=== PATIENT | male | born 1955 | race Two or more races ===

== ENCOUNTER 2016-12-11 05:12 | Inpatient (IN) | payer BC ==
[2016-12-11] VITALS (40 sets, daily range): BP systolic 83–177; BP diastolic 53–123; PULSE 60–76; RESP 17–28; TEMP 98; Ht 175.3 cm; Wt 94.9 kg
[~2016-12-11] VITALS: Ht 175.3 cm; Wt 94.9 kg
[2016-12-11] MEDS ORDERED: RANO10002 PO (05:29)
[2016-12-11] MEDS ORDERED: METO-429 PO (05:29)
[2016-12-11] MEDS ORDERED: LOSA1TAB21 PO (05:29)
[2016-12-11] MEDS ORDERED: ZOLP10TA5 PO (05:29)
[2016-12-11] MEDS ORDERED: ERGO500037 PO (05:29)
[2016-12-11] MEDS ORDERED: RIVA15TA PO (05:29)
[2016-12-11] MEDS ORDERED: ISOS60TA PO (05:29)
[2016-12-11 05:47] LABS: BASOPHIL # 0.1 10^3/ul (0.0-0.1); BASOPHILS % 0.5 % (0.0-2.0); EOSINOPHILS # 0.1 10^3/ul (0.0-0.5); EOSINOPHILS % 1.4 % (0.0-7.0); HEMATOCRIT 50.8 % (42.0-52.0); HEMOGLOBIN 16.4 g/dl (14.0-18.0); LYMPHOCYTES # 2.4 10^3/ul (0.8-2.9); LYMPHOCYTES % 24.4 % (15.0-51.0); MEAN CORPUSCULAR HEMOGLOBIN 30.5 pg (29.0-33.0); MEAN CORPUSCULAR HGB CONC 32.3 g/dl (32.0-37.0); MEAN CORPUSCULAR VOLUME 94.6 fl (82.0-101.0); MEAN PLATELET VOLUME 9.4 fl (7.4-10.4); MONOCYTE # 0.7 10^3/ul (0.3-0.9); MONOCYTES % 6.9 % (0.0-11.0); PLATELET COUNT 218 10^3/UL (140-415); RED BLOOD COUNT 5.37 10^6/ul (4.70-6.10); RED CELL DISTRIBUTION WIDTH 12.6 % (11.5-14.5)
[2016-12-11 05:57] LABS: AADO2 Arterial 238.2 mmHg (7.0-24.0); Allen Test ACCEPTAB; Arterial Base Excess -5.6 mmol/L (-3.0-3); Arterial COHb 0.3 % (0.0-3.0); Arterial Fraction of Oxyhgb 98.8 % (93.0-99.0); Arterial HCO3 23.4 mmol/L (22.0-26.0); Arterial MetHb 0.4 % (0.0-1.5); Arterial Total Hemglobin 17.3 g/dl (12.0-18.0); MODE VENT - AC
[2016-12-11 06:00] LABS: INR 1.24; PROTIME 15.7 Sec (12.2-14.2); PT RATIO 1.2
[2016-12-11 06:05] LABS: ALANINE AMINOTRANSFERASE 38 IU/L (13-69); ALBUMIN 4.2 g/dl (3.3-4.9); ALBUMIN/GLOBULIN RATIO 1.31; ALKALINE PHOSPHATASE 43 IU/L (42-121); ANION GAP 25 (8-16); ASPARTATE AMINO TRANSFERASE 27 IU/L (15-46); BILIRUBIN,INDIRECT 0.3 mg/dl (0-1.1); BILIRUBIN,TOTAL 0.3 mg/dl (0.2-1.3); BLOOD UREA NITROGEN 24 mg/dl (7-20); CALCIUM 9.2 mg/dl (8.4-10.2); CARBON DIOXIDE 26 mmol/L (21-31); CHLORIDE 107 mmol/L (97-110); CREATININE 1.34 mg/dl (0.61-1.24); GLUCOSE 101 mg/dl (70-220); POTASSIUM 4.5 mmol/L (3.5-5.1); SODIUM 153 mmol/L (135-144); TOTAL PROTEIN 7.4 g/dl (6.1-8.1)
--- NOTE | 2016-12-11 06:12 | EN ---
Date/Time of Note Date/Time of Note DATE: 12/11/16 TIME: 06:09 ER Progress Note The patient called 911 because of chest pain. En route to the ER, he became obtunded with altered mental status but never lost pulse. He was diaphoretic when he came to the ER, unable to provide a history, Accu-Chek was 87. He was admitted intubated Endotracheal Intubation by me: Pre assessment performed. See preceding note for details. Pre-oxygenation performed with 100% oxygen RSI: Performed w/o complication or hypoxic events. Medications as ordered. Blade: [place] Scope ET Tube: 7.5 cm Depth: 23 cm at the lip Intubation confirmed by colorimetric CO2, equal breath sounds, quiet over the stomach. I have order for NG tube, [place], portable chest x-ray The patient will be evaluated by the oncoming physician Dr. Trey WEIR,DIONICIO De León MD Dec 11, 2016 06:12
[2016-12-11 06:18] LABS: TROPONIN-I < 0.012 ng/ml (0.00-0.12)
[2016-12-11] MEDS ORDERED: PROPOFOL 100 ML IV STA (06:20)
[2016-12-11] MEDS ORDERED: FUROSEMIDE 40 MG INJ IV ONE (06:30)
[2016-12-11 06:36] LABS: ADD UMIC YES; UR ASCORBIC ACID NEGATIVE (NEGATIVE); UR BACTERIA MODERATE /HPF (NONE SEEN); UR BILIRUBIN (Dip) NEGATIVE (NEGATIVE); UR BLOOD (Dip) NEGATIVE (NEGATIVE); UR CLARITY CLOUDY (CLEAR); UR COLOR YELLOW (YELLOW); UR GLUCOSE (Dip) 1+ mg/dL (NEGATIVE); UR KETONES (Dip) NEGATIVE (NEGATIVE); UR LEUKOCYTE ESTERASE (Dip) NEGATIVE Leu/ul (NEGATIVE); UR NITRITE (Dip) NEGATIVE (NEGATIVE); UR RBC 30 /HPF (0-5); UR SPECIFIC GRAVITY (Dip) 1.015 (1.003-1.030); UR TOTAL PROTEIN (Dip) 3+ mg/dl (NEGATIVE); UR UROBILINOGEN (Dip) NEGATIVE (NEGATIVE); UR WBC CLUMPS FEW /HPF (NONE SEEN)
--- NOTE | 2016-12-11 06:42 | RADRPT ---
PROCEDURE: Chest. CLINICAL INDICATION: Chest pain. TECHNIQUE: Single frontal view of the chest was obtained. COMPARISON: None. FINDINGS: There is a left-sided pacemaker. Mediasternotomy wires are present. There is an endotracheal tube is 2.5 cm above the summer. There is a nasogastric tube coiled within the distal esophagus and stom ach. The cardiac silhouette is enlarged. The aortic arch is unremarkable. There is pulmonary veno us congestion. There is no pleural effusion. There is no pneumothorax. IMPRESSION: Nasogastric tube coiled within the distal esophagus and stomach. Repositioning is recommended. Endotracheal tube in place. Mild to moderate cardiomegaly and pulmonary venous congestion. .Nuno Jaeger MD, Date Time Electronically viewed and signed by .Nuno Jaeger MD, MD on 12/11/2016 06:42 .T/
[2016-12-11] MEDS ORDERED: CEFEPIME 2GM/50 ML (PMX) 50 ML IVPB STA (06:44)
[2016-12-11] MEDS ORDERED: SODIUM CHLORIDE 0.9% 1L BAG IV* STA (06:44)
[2016-12-11] MEDS ORDERED: VANCOMYCIN 1 GM (PMX) 250 ML IVPB ONE (07:00)
[2016-12-11] MEDS ORDERED: ETOMIDATE 20 MG INJ ONE (07:00)
[2016-12-11] MEDS ORDERED: ROCURONIUM 50 MG INJ ONE (07:00)
--- NOTE | 2016-12-11 07:00 | RADRPT ---
PROCEDURE: CT Brain without contrast. CLINICAL INDICATION: Altered level of consciousness TECHNIQUE: Axial images from the skull base through the vertex without IV contrast. Multiplanar r eformatted images were made. Images were reviewed on a PACS workstation. The CTDIvol is 45.01 mGy and the DLP is 810.25 mGycm. One or more of the following dose reduction techniques were used: auto mated exposure control, adjustment of the mA and/or kV according to patient size, or use of iterativ e reconstruction technique. COMPARISON: None. FINDINGS: Atrophy and probable chronic microvascular ischemic changes are seen. Small left chronic subdural h ygroma versus prominent extraaxial space due to atrophy.. No definite acute territorial infarction or intracranial hemorrhage. Probable small old lacunar infarct in the right subinsular region. Mil d ex vacuo dilatation of the ventricles. No mass or midline shift is seen. Orotracheal and nasogas tric tubes are seen in place. The visualized paranasal sinuses and mastoids are clear. IMPRESSION: Atrophy and chronic microvascular ischemic changes. Small old left subdural hygroma versus prominen t extraaxial space due to atrophy. Probable small old lacunar infarct in the right subinsular regio n. RPTAT: HLBE Physician Ke Date Time Electronically viewed and signed by Physician Ke on 12/11/2016 06:59 LE/
[2016-12-11] MEDS ORDERED: HYDROmorphONE 1 MG/ML SYG IV STA (07:42)
--- NOTE | 2016-12-11 07:52 | ERA ---
ER Documentation Chief Complaint Date/Time DATE: 12/11/16 TIME: 07:48 Chief Complaint BIBRA # 89 c/o CP. Went into agonal respirations. Given BVM. HPI Patient is a 61-year-old male with coronary disease, hypertension, and diabetes who presents with shortness of breath. Please note the history and physical exam is limited as the patient is currently intubated. The patient woke up at 5 AM with shortness of breath. It quickly worsened per the daughter and 911 was called. The patient was brought in by ambulance. He was being bagged by paramedics upon arrival and eventually was nonresponsive. Last night he was okay per the family. Patient denied chest pain this morning. He had no fevers or cough. The patient never lost pulses. The patient is on Xarelto. Upon review of old medical records this is the patient's first visit to the emergency department. The patient was intubated by my partner Dr. Weir upon arrival for respiratory failure. I took over as the attending physician immediately upon arrival at 6 AM. ROS All systems reviewed and are negative except as per history of present illness. Medications Home Meds Reported Medications Metoprolol Tartrate* (Lopressor*) 50 Mg Tab, 50 MG PO DAILY, #60 TAB 12/11/16 Ergocalciferol (Vitamin D2) (VITAMIN D2) 50,000 Unit Capsule, 02061 UNIT PO QTUESDAY, CAP 12/11/16 Zolpidem Tartrate* (Zolpidem Tartrate*) 10 Mg Tablet, 10 MG PO QHS Y for INSOMNIA, #30 TAB 12/11/16 Rivaroxaban* (Xarelto*) 15 Mg Tablet, 15 MG PO DAILY, TAB 12/11/16 Isosorbide Mononitrate* (Isosorbide Mononitrate*) 60 Mg Tab.er.24h, 60 MG PO DAILY, TAB 12/11/16 Losartan-Hydrochlorothiazide (Losartan-HCTZ) 100-12.5 Mg Tab, 1 TAB PO QAM, TAB 12/11/16 Ranolazine* (Ranexa*) 1,000 Mg Tab.sr.12h, 1000 MG PO Q12, TAB 12/11/16 Allergies Allergies: Coded Allergies: No Known Allergy (Unverified , 12/11/16) PMhx/Soc Positive for coronary disease, hypertension, and diabetes Medical and Surgical Hx: Unable to obtain Smoking Status: Unknown if ever smoked FmHx Family History: coronary disease Physical Exam Vitals Vital Signs Date Time Temp Pulse Resp B/P Pulse Ox O2 Delivery O2 Flow Rate FiO2 12/11/16 07:01 97.9 60 24 143/88 100 Mechanical Ventilator 15.0 12/11/16 06:57 60 24 100 100 12/11/16 06:15 67 20 186/91 100 Mechanical Ventilator 12/11/16 06:00 40 12/11/16 05:55 97.9 78 20 206/107 100 Mechanical Ventilator 12/11/16 05:40 103 20 189/106 100 Mechanical Ventilator 12/11/16 05:35 97.6 110 20 199/117 100 Mechanical Ventilator 12/11/16 05:30 110 20 182/110 99 Ambu Bag 15.0 12/11/16 05:20 93 20 100 100 12/11/16 05:18 98.6 90 20 95/65 99 Physical Exam Const: Critical with current intubation Head: Atraumatic Eyes: Pupils are 1-2 mm with abnormal pupil in the left eye from previous surgery ENT: Intubated Neck: Full range of motion..~ No meningismus. Resp: Clear lung sounds bilaterally with ventilator Cardio: Regular rate and rhythm, no murmurs Abd: Soft, non tender, non distended. Normal bowel sounds Skin: No petechiae or rashes Back: No midline or flank tenderness Ext: No cyanosis, or edema Neur: Intubated and sedated Result Diagram: 12/11/16 0525 12/11/16 0525 Results 24 hrs Laboratory Tests Test 12/11/16 05:23 12/11/16 05:25 12/11/16 05:50 Bedside Glucose 120mg/dL White Blood Count 10.010^3/ul Red Blood Count 5.3710^6/ul Hemoglobin 16.4g/dl Hematocrit 50.8% Mean Corpuscular Volume 94.6fl Mean Corpuscular Hemoglobin 30.5pg Mean Corpuscular Hemoglobin Concent 32.3g/dl Red Cell Distribution Width 12.6% Platelet Count 14008^3/UL Mean Platelet Volume 9.4fl Neutrophils % 66.0% Lymphocytes % 24.4% Monocytes % 6.9% Eosinophils % 1.4% Basophils % 0.5% Nucleated Red Blood Cells % 0.0/100WBC Neutrophils # (Manual) 6.610^3/ul Lymphocytes # 2.410^3/ul Monocytes # 0.710^3/ul Eosinophils # 0.110^3/ul Basophils # 0.110^3/ul Nucleated Red Blood Cells # 0.010^3/ul Prothrombin Time 15.7Sec Prothrombin Time Ratio 1.2 INR International Normalized Ratio 1.24 Activated Partial Thromboplast Time 34.0Sec Sodium Level 153mmol/L Potassium Level 4.5mmol/L Chloride Level 107mmol/L Carbon Dioxide Level 26mmol/L Anion Gap 25 Blood Urea Nitrogen 24mg/dl Creatinine 1.34mg/dl Glucose Level 101mg/dl Lactic Acid Level 3.0mmol/L Calcium Level 9.2mg/dl Total Bilirubin 0.3mg/dl Direct Bilirubin 0.00mg/dl Indirect Bilirubin 0.3mg/dl Aspartate Amino Transf (AST/SGOT) 27IU/L Alanine Aminotransferase (ALT/SGPT) 38IU/L Alkaline Phosphatase 43IU/L Troponin I < 0.012ng/ml Total Protein 7.4g/dl Albumin 4.2g/dl Globulin 3.20g/dl Albumin/Globulin Ratio 1.31 Urine Color YELLOW Urine Clarity CLOUDY Urine pH 5.0 Urine Specific [place] 1.015 Urine Ketones NEGATIVEmg/dL Urine Nitrite NEGATIVEmg/dL Urine Bilirubin NEGATIVEmg/dL Urine Urobilinogen NEGATIVEmg/dL Urine Leukocyte Esterase NEGATIVELeu/ul Urine Microscopic RBC 30/HPF Urine Microscopic WBC 59/HPF Urine Bacteria MODERATE/HPF Urine Hemoglobin NEGATIVEmg/dL Urine Glucose 1+mg/dL Urine Total Protein 3+mg/dl Blood Gas Specimen Source Blood arterial Arterial Blood Date Drawn 12/11/2016 5:52:00 AM Arterial Blood pH (Temp corrected) 7.215 Arterial Blood pCO2 (Temp correct) 59.1mmhg Arterial Blood pO2 (Temp corrected) 415.7mmHG Arterial Blood HCO3 23.4mmol/L Arterial Blood Base Excess -5.6mmol/L Arterial Blood Oxygen Saturation 99.5mmHG Koko Test ACCEPTAB Arterial Blood Gas Puncture Site Right Radial Arterial Blood Carboxyhemoglobin 0.3% Arterial Blood Methemoglobin 0.4% Blood Gas A-a O2 Differential 238.2mmHg Oxyhemoglobin Percent 98.8% Total Hemoglobin 17.3g/dl Blood Gas Temperature 37.0C Blood Gas Respiration Rate 20.0 Blood Gas Actual Respiration Rate 20 Blood Gas Modality VENT - AC FiO2 100.0% Blood Gas Tidal Volume 500.0mL Blood Gas Inspiratory Pressure 37.0 Blood Gas Critical Value Read Back Sarthak WEIR MD Blood Gas Notified Whom MG Blood Gas Notified Time 12/11/2016 5:57:38 AM Current Medications Medications (Trade) Dose Ordered Sig/Gabi Route PRN Reason Start Time Stop Time Status Last Admin Dose Admin Propofol (Diprivan) 100 ml @ 3 mls/hr ONCE STAT IV 12/11/16 06:20 12/12/16 15:39 12/11/16 06:27 Furosemide (Lasix) 40 mg ONCE ONCE IV 12/11/16 06:30 12/11/16 06:31 DC 12/11/16 06:40 Sodium Chloride 3100 ml 3,100 ml BOLUS OVER 2 HOURS STAT IV* 12/11/16 06:44 12/11/16 06:54 DC 12/11/16 06:57 Cefepime HCl 50 ml @ 100 mls/hr ONCE STAT IVPB 12/11/16 06:44 12/11/16 07:13 DC 12/11/16 06:59 Vancomycin HCl (Vancocin) 250 ml @ 125 mls/hr ONCE ONCE IVPB 12/11/16 07:00 12/11/16 08:59 Hydromorphone HCl (Dilaudid) 1 mg ONCE STAT IV 12/11/16 07:42 12/11/16 07:44 DC Procedures/MDM PROCEDURE: CT Brain without contrast. CLINICAL INDICATION: Altered level of consciousness TECHNIQUE: Axial images from the skull base through the vertex without IV contrast. Multiplanar reformatted images were made. Images were reviewed on a PACS workstation. The CTDIvol is 45.01 mGy and the DLP is 810.25 mGycm. One or more of the following dose reduction techniques were used: automated exposure control, adjustment of the mA and/or kV according to patient size, or use of iterative reconstruction technique. COMPARISON: None. FINDINGS: Atrophy and probable chronic microvascular ischemic changes are seen. Small left chronic subdural hygroma versus prominent extraaxial space due to atrophy.. No definite acute territorial infarction or intracranial hemorrhage. Probable small old lacunar infarct in the right subinsular region. Mild ex vacuo dilatation of the ventricles. No mass or midline shift is seen. Orotracheal and nasogastric tubes are seen in place. The visualized paranasal sinuses and mastoids are clear. IMPRESSION: Atrophy and chronic microvascular ischemic changes. Small old left subdural hygroma versus prominent extraaxial space due to atrophy. Probable small old lacunar infarct in the right subinsular region. RPTAT: HLBE Physician Ke Date Time Electronically viewed and signed by Chelsea Parmar Physician on 12/11/2016 06 :59 Chest x-ray shows good ET tube placement and no pneumonia per radiology. Admit MDM: Patient's infectious symptoms have not stabilized and the patient is at risk of rapid decompensation. The patient will be admitted for careful hydration, antibiotic therapy, and infectious source control. Severe Sepsis criteria: Infectious source: Cystitis End organ damage indicated by: Lactate greater than 2 Sepsis Management: Time of recognition of sepsis: 5:50 AM Within 3 hours of recognition: Blood cultures x 2 before broad-spectrum antibiotics: Yes 30 ml/kg NS bolus Completed Initial lactate 3.0 Repeat lactate pending Time of recognition of septic shock: No septic shock Septic Shock Assessment: Any lactic acid > 4.0 No Persistent hypotension (SBP < 90 or 40 mmHg drop, MAP < 65) despite 30 mL/kg IV fluid bolus No Volume Re-assessment for Septic Shock (post 30 ml/kg bolus): No septic shock at this time Persistent Hypotension Treatment: Comfort care No Central line intraosseous line was placed upon arrival for IV access but we now also have peripheral access Vasopressor started Not required I considered further perfusion assessment with CVP measurement, SCVO2, bedside ultrasound volume assessment, passive leg raise, trial of further fluid bolus. And proceeded with 30 ml/kg fluid bolus of NSS, broad spectrum antibiotics, and admission. The patient was intubated by Dr. Weir upon arrival for respiratory failure. At this point I doubt acute stroke or intracranial hemorrhage. Initially I considered respiratory failure from pulmonary edema and gave Lasix but after the patient was found to have a cystitis with elevated lactic acid I was concerned for severe sepsis and therefore fluids were given. Accepting Care Team Current data and ongoing care discussed. Admitting Physician: Dr. Obrien from the panel team as the patient is unstable for transfer Carbide Die Maker(s): None Outstanding Data: Culture results Critical Care: Critical care time 35 minutes excluding all billable procedures Emergent fluid management while maintaining close respiratory support. Provision of immediate and broad-spectrum antibiotic therapy. Simultaneous assessment for possible sources in order to direct targeted therapy. Consideration for invasive and chemical support to prevent cardiopulmonary collapse. Departure Diagnosis: Primary Impression: Severe sepsis Additional Impressions: Respiratory arrest Dyspnea Qualified Code: R06.00 - Dyspnea, unspecified type Pulmonary edema Qualified Code: J81.0 - Acute pulmonary edema Cystitis Condition: Critical MONI BOCANEGRA MD Dec 11, 2016 07:52
[2016-12-11 13:03] LABS: AADO2 Arterial 163.4 mmHg (7.0-24.0); Arterial Base Excess -2.9 mmol/L (-3.0-3); Arterial COHb 0.4 % (0.0-3.0); Arterial Fraction of Oxyhgb 96.5 % (93.0-99.0); Arterial HCO3 19.9 mmol/L (22.0-26.0); Arterial MetHb 0.1 % (0.0-1.5); Arterial Total Hemglobin 14.3 g/dl (12.0-18.0); Blood Gas Low PEEP Setting 0 cmH2O; MODE VENT - AC
[2016-12-11] MEDS ORDERED: DEXTROSE 5% WATER 500 ML BAG IV ONE (15:00)
--- NOTE | 2016-12-11 15:22 | HP ---
Date/Time of Note Date/Time of Note DATE: 12/11/16 TIME: 15:10 Assessment/Plan VTE Prophylaxis VTE Prophylaxis Intervention: LMWH, other Lines/Catheters IV Catheter Type (from Nrs): Intraosseous Central line still needed: Yes Urinary Cath still in place: Yes Reason Cath still needed: urinary retention Assessment/Plan Chief Complaint/Hosp Course 61 yo male with h/o CAD s/p CABG, CKD II, DMII, PPM for likely SSS/A Fib on Xarelto who presents with acute hypoxic and hyperpapneic respiratory failure s/ p emergent intubation in the ED. Likely from acute cardiogenic pulmonary edema. Does not show evidence of acute VA. PULM: s/p intubation for hypoxic/hypercapneic respiratory failure. Suspect cardiogenic pulmonary edema - MV via ETT for now, can likely be extubated this afternoon given appearance. PST now - Diuresis - Pneumonia possible but doesn't seem likely CV: h/o CAD s/p CABG, likely acute CHF exacerbation - TTE to assess cardiac function - Diuresis - Aspirin, Statin chronic - Troponin to exclude acute VA - HD stable, no shock, hypotension was 2/2 propofol Lactic acidosis: - Resolved Suspect permanent A Fib as on Xarelto w PPM suspect for SSS - Continue Xarelto - A paced at 60 ENDO: DMII: - Basal bolus insulin RENAL: - CKD II is stable - Trend creatinine Full code Problems: HPI/ROS Admit Date/Time Admit Date/Time Dec 11, 2016 at 07:11 Hx of Present Illness 61 yo male with h/o CAD s/p CABG, PPM, DMII, obesity who presented with 1 day of SOB. Found to be in respiratory failure and intubated acutely in the ED. Family says he had been his normal self prior to day of presentation. Did not complain of any symptoms prior to developed SOB. They state he had a similar episode of "flash lung water" 4 years ago and was intubated then as well. Underwent PPM at that time. Subsequently has not had any issues with heart or breathing. Does not take diuretics daily they said. PMH/Family/Social Past Medical History Medical History: coronary artery disease, diabetes Past Surgical History Past Surgical Hx: coronary bypass surgery Social History Alcohol Use: none Smoking Status: Former smoker Drug Use: none Exam/Review of Systems Vital Signs Vitals Vital Signs Date Time Temp Pulse Resp B/P Pulse Ox O2 Delivery O2 Flow Rate FiO2 12/11/16 12:30 61 24 83/55 100 12/11/16 12:30 40 12/11/16 12:24 98.6 Mechanical Ventilator 12/11/16 11:49 15.0 Exam Exam Intubated on MV Alert 160s/70s, HR A paced at 60 ALert, responsive to commands RRR, no murmur Abdomen obese Lungs clear anteriorly No edema Labs Result Diagram: 12/11/16 0525 12/11/16 0525 Procedures Procedures EKG is A paced THA BALES MD Dec 11, 2016 15:20
[2016-12-11] MEDS ORDERED: hydrALAzine 20 MG INJ IV PRN (15:30)
[2016-12-11] MEDS: FUROSEMIDE 40 MG INJ IV SCH (16:13)
[2016-12-11] MEDS: INSULIN ASPART [NOVOLOG] 3 ML PEN SC SCH ×2 (17:00→20:16)
[2016-12-11 17:08] LABS: CALCIUM 8.6 mg/dl (8.4-10.2); CREATININE 1.39 mg/dl (0.61-1.24); POTASSIUM 4.8 mmol/L (3.5-5.1)
[2016-12-11] MEDS: RIVAROXABAN 15 MG TABLET PO SCH (18:05)
[2016-12-11] MEDS: DEXTROSE 5% 1,000 ML IV SCH (18:41)
[2016-12-11] MEDS ORDERED: FENTAnyl (DRIP) 1000 mcg/100mL 100 ML IV SCH (19:00)
[2016-12-11] MEDS: RANOLAZINE (SR) 500 MG TAB PO SCH (20:17)
[2016-12-11] MEDS: PROPOFOL 100 ML IV SCH (20:31)
[2016-12-11] MEDS: ALBUTEROL/IPRATROPIUM (NEB) 3 ML AMP HHN SCH (20:40)
[2016-12-12] VITALS (27 sets, daily range): BP systolic 125–168; BP diastolic 49–94; PULSE 46–76; RESP 15–33
[2016-12-12] MEDS: INSULIN ASPART [NOVOLOG] 3 ML PEN SC SCH ×6 (01:00→21:12)
[2016-12-12] MEDS: ACCU-CHEK XX SCH ×2 (02:00→21:06)
[2016-12-12] MEDS: DEXTROSE 5% 1,000 ML IV SCH (02:00)
--- NOTE | 2016-12-12 04:25 | CONS ---
DATE OF ADMISSION: 12/11/2016 DATE OF CONSULTATION: 12/11/2016 REASON FOR CONSULTATION: Ventilator management. Thank you, Dr. Mcguire, for this consultation. HISTORY OF PRESENT ILLNESS: This is a 61-year-old gentleman with a history of coronary artery bypass graft surgery, permanent pacemaker, type 2 diabetes, who presents with 1-day history of increasing shortness of breath, orthopnea, PND, weakness. Found on admission to have significant hypoxemia requiring emergent intubation and mechanical ventilation. Per family, patient had a similar episode 4 years ago. At that time, had difficulty coming off the ventilator. Patient has a pacemaker, but no prior history of myocardial infarction per family. SOCIAL HISTORY: He is a nonsmoker. Occasional alcohol. No history of drug use. FAMILY HISTORY: Noncontributory. REVIEW OF SYSTEMS: Twelve point negative other than that mentioned above. PHYSICAL EXAMINATION: GENERAL APPEARANCE: Morbidly obese gentleman. Opens eyes and follows some commands, on mechanical ventilation. VITAL SIGNS: Temperature 98, pulse 61, blood pressure 100/50, O2 sat 96 percent, FiO2 40 of percent. Orally intubated. NECK: Supple. No JVD, lymphadenopathy. CARDIAC: S1, S2. No added sounds or murmurs. CHEST: Diminished air entry bilaterally. ABDOMEN: Soft, nontender. No guarding or rebound. EXTREMITIES: No cyanosis, clubbing, edema. NEUROLOGICALLY: Grossly intact. No focal deficits. LABORATORY: White count 10.0, hemoglobin 16.4, platelets of 218. Chemistry: BUN 24, creatinine 1.234. Lactic acid was initially 3, now 1.4. Initial troponin was negative. Arterial blood gas: pH 7.44, pCO2 of 29, PO2 of 87, bicarb of 19. INR 1.24. Chest x- ray shows pulmonary edema. EKG shows no acute ischemic changes. IMPRESSION: 1. Acute hypoxemic respiratory failure, likely secondary to systolic versus diastolic dysfunction. 2. Underlying history of coronary artery disease. 3. Probable obstructive sleep apnea. 4. Type 2 diabetes. PLAN: 1. Patient to be placed on CPAP weaning trial. 2. Cardiology evaluation. 3. Serial troponins. 4. Echocardiogram. 5. Outpatient sleep study. 6. DVT and GI prophylaxis. Dictated By: Boris Cosme MD /[email or web address]/josi /Document#: [id number]
[2016-12-12 05:34] LABS: BASOPHILS % 0.1 % (0.0-2.0); EOSINOPHILS # 0.1 10^3/ul (0.0-0.5); EOSINOPHILS % 0.5 % (0.0-7.0); HEMOGLOBIN 14.2 g/dl (14.0-18.0); LYMPHOCYTES # 1.2 10^3/ul (0.8-2.9); LYMPHOCYTES % 11.5 % (15.0-51.0); MEAN CORPUSCULAR HEMOGLOBIN 29.8 pg (29.0-33.0); MEAN CORPUSCULAR HGB CONC 32.3 g/dl (32.0-37.0); MEAN CORPUSCULAR VOLUME 92.2 fl (82.0-101.0); MEAN PLATELET VOLUME 9.9 fl (7.4-10.4); MONOCYTES % 9.2 % (0.0-11.0); NEUTROPHILS % 78.3 % (39.0-77.0); PLATELET COUNT 161 10^3/UL (140-415); RED BLOOD COUNT 4.77 10^6/ul (4.70-6.10); RED CELL DISTRIBUTION WIDTH 13.2 % (11.5-14.5); WHITE BLOOD COUNT 10.5 10^3/ul (4.8-10.8)
[2016-12-12 05:58] LABS: CREATININE 1.51 mg/dl (0.61-1.24); MAGNESIUM 1.6 mg/dl (1.7-2.5); PHOSPHORUS 3.3 mg/dl (2.5-4.9); POTASSIUM 4.4 mmol/L (3.5-5.1)
[2016-12-12] MEDS: INSULIN GLARGINE [LANtus] 3 ML PEN SC SCH (08:00)
--- NOTE | 2016-12-12 08:28 | RADRPT ---
PROCEDURE: XR Chest. CLINICAL INDICATION: Shortness of breath. TECHNIQUE: Single frontal view. COMPARISON: 12/11/2016. FINDINGS: The endotracheal tube, nasogastric tube, left-sided dual lead permanent pacemaker remain in satisfac tory position. The heart is enlarged. There are sternal wires and mediastinal clips. Mild pulmonary edema is slightly improved. There is no pleural effusion. There is no pneumothorax. IMPRESSION: 1. Slightly improved mild pulmonary edema. 2. No other change from 12/11/2016. RPTAT: QQ .Kevin Martel MD, MD Date Time Electronically viewed and signed by .Kevin Martel MD, MD on 12/12/2016 08:28 .R/
[2016-12-12] MEDS ORDERED: MAGNESIUM SULFATE 2 GM/50 ML 50 ML IVPB ONE (08:30)
[2016-12-12] MEDS ORDERED: DEXTROSE 5% WATER 500 ML BAG IV ONE (08:30)
[2016-12-12 08:42] LABS: AADO2 Arterial 64.4 mmHg (7.0-24.0); Allen Test ACCEPTAB; Arterial Base Excess -0.4 mmol/L (-3.0-3); Arterial COHb 0.9 % (0.0-3.0); Arterial Fraction of Oxyhgb 95.3 % (93.0-99.0); Arterial HCO3 22.7 mmol/L (22.0-26.0); Arterial MetHb 0.1 % (0.0-1.5); Arterial Total Hemglobin 15.9 g/dl (12.0-18.0); Blood Gas PS 10; MODE VENT - CPAP
[2016-12-12] MEDS: RANOLAZINE (SR) 500 MG TAB PO SCH ×2 (08:47→20:37)
[2016-12-12] MEDS: FUROSEMIDE 40 MG INJ IV SCH (08:48)
[2016-12-12] MEDS ORDERED: METOPROLOL 50 MG TAB PO SCH (09:00)
[2016-12-12] MEDS: PROPOFOL 100 ML IV SCH ×2 (09:00→19:35)
--- NOTE | 2016-12-12 09:24 | CONS ---
Date/Time of Note Date/Time of Note DATE: 12/12/16 TIME: 09:12 Assessment/Plan Assessment/Plan Chief Complaint/Hosp Course Acute respiratory failure: Secondary to pulmonary edema. Intubated emergently on admission, now doing well on pressure support. Anticipate extubation today Acute on chronic ?systolic heart failure: Unknown EF. Still decompensated based on CXR but diuresing well CAD s/p CABG (unknown details): first trop negative, not trended further Cardiomyopathy (unknown EF) paroxysmal afib on Xarelto SSS s/p PPM CKD HTN -continue lasix 40mg IV daily as diuresing very well with current dosing -start ASA, lipitor -BP elevated so will start home losartan 100mg -change metoprolol to BID dosing -trend one more trop -f/u echo Problems: Consultation Date/Type/Reason Admit Date/Time Dec 11, 2016 at 07:11 Date of Consultation: Dec 12, 2016 Type of Consultation: Cardiology Reason for Consultation Acute respiratory failure, CHF Referring Provider: THA BALES MD Hx of Present Illness 61 yo M with a h/o CAD s/p CABG (unknown details), cardiomyopathy (unknown EF), CHF, paroxysmal afib on Xarelto, SSS s/p PPM, CKD, who presented with SOB and was emergently intubated in the ED. Overnight he did well and this am he remains intubated, on pressor support but awake, alert and able to answer questions in [place]. He denies ever having chest pain. He was doing well until the night of admission when he started to feel progressively SOB and in the am called paramedics. Currently no CP or SOB. per HPI, minimal as pt intubated Past Medical History per HPI Medical History: coronary artery disease, diabetes Past Surgical History Past Surgical Hx: coronary bypass surgery Social History Alcohol Use: none Smoking Status: Former smoker Drug Use: none Exam/Review of Systems Vital Signs Vitals Vital Signs Date Time Temp Pulse Resp B/P Pulse Ox O2 Delivery O2 Flow Rate FiO2 12/12/16 05:00 69 26 95 26 12/11/16 21:30 142/71 12/11/16 21:00 Mechanical Ventilator 12/11/16 20:00 98.2 12/11/16 11:49 15.0 Intake and Output 12/11/16 12/11/16 12/12/16 15:00 23:00 07:00 Intake Total 57 ml 388 ml Output Total 425 ml 2000 ml 800 ml Balance -368 ml -1612 ml -800 ml Exam Constitutional: alert, oriented Psych: no complaints Head: atraumatic, normocephalic ENMT: intubated Neck: supple, No jvd (unable to examine) Respiratory: diminished breath sounds, No clear to auscultation, No crackles/rales Cardiovascular: edema (1+), regular rate and rhythm, systolic murmur (2/6 YANELY) Musculoskeletal: nl extremities to inspection Neurological: nl mental status Skin: No rash or lesions Results EKG: sinus, RBBB Result Diagram: 12/12/16 0455 12/12/16 0455 Results 24 hrs Laboratory Tests Test 12/11/16 11:12 12/11/16 12:25 12/11/16 16:28 12/11/16 17:15 Lactic Acid Level 1.4 Blood Gas Specimen Source Blood arterial Arterial Blood Date Drawn 12/11/2016 12:47:03 PM Arterial Blood pH (Temp corrected) 7.447 Arterial Blood pCO2 (Temp correct) 29.5 L Arterial Blood pO2 (Temp corrected) 87.9 Arterial Blood HCO3 19.9 L Arterial Blood Base Excess -2.9 Arterial Blood Oxygen Saturation 97.0 Koko Test N/A Arterial Blood Gas Puncture Site Right Brachial Arterial Blood Carboxyhemoglobin 0.4 Arterial Blood Methemoglobin 0.1 Blood Gas A-a O2 Differential 163.4 H Oxyhemoglobin Percent 96.5 Total Hemoglobin 14.3 Blood Gas Temperature 37.0 Blood Gas Respiration Rate 24.0 Blood Gas Actual Respiration Rate 24 Blood Gas Modality VENT - AC FiO2 40.0 Blood Gas Tidal Volume 500.0 Blood Gas Low PEEP Setting 0 Blood Gas Notified Whom Blood Gas Notified Time 12/11/2016 1:03:29 PM Sodium Level 148 H Potassium Level 4.8 Chloride Level 106 Carbon Dioxide Level 27 Anion Gap 20 H Blood Urea Nitrogen 24 H Creatinine 1.39 H Glucose Level 98 Calcium Level 8.6 Bedside Glucose 92 Test 12/11/16 20:15 12/12/16 04:55 12/12/16 07:00 Bedside Glucose 117 White Blood Count 10.5 Red Blood Count 4.77 Hemoglobin 14.2 Hematocrit 44.0 Mean Corpuscular Volume 92.2 Mean Corpuscular Hemoglobin 29.8 Mean Corpuscular Hemoglobin Concent 32.3 Red Cell Distribution Width 13.2 Platelet Count 161 # Mean Platelet Volume 9.9 Neutrophils % 78.3 H Lymphocytes % 11.5 L Monocytes % 9.2 Eosinophils % 0.5 Basophils % 0.1 Nucleated Red Blood Cells % 0.0 Neutrophils # (Manual) 8.3 H Lymphocytes # 1.2 Monocytes # 1.0 H Eosinophils # 0.1 Basophils # 0.0 Nucleated Red Blood Cells # 0.0 Sodium Level 147 H Potassium Level 4.4 Chloride Level 104 Carbon Dioxide Level 30 Anion Gap 17 H Blood Urea Nitrogen 22 H Creatinine 1.51 H Glucose Level 86 Calcium Level 9.0 Phosphorus Level 3.3 Magnesium Level 1.6 L Blood Gas Specimen Source Blood arterial Arterial Blood Date Drawn 12/12/2016 8:20:54 AM Arterial Blood pH (Temp corrected) 7.451 H Arterial Blood pCO2 (Temp correct) 33.4 L Arterial Blood pO2 (Temp corrected) 81.4 Arterial Blood HCO3 22.7 Arterial Blood Base Excess -0.4 Arterial Blood Oxygen Saturation 96.3 Koko Test ACCEPTAB Arterial Blood Gas Puncture Site Right Radial Arterial Blood Carboxyhemoglobin 0.9 Arterial Blood Methemoglobin 0.1 Blood Gas A-a O2 Differential 64.4 H Oxyhemoglobin Percent 95.3 Total Hemoglobin 15.9 Blood Gas Temperature 37.0 Blood Gas Actual Respiration Rate 23 Blood Gas Modality VENT - CPAP FiO2 26.0 Blood Gas Low PEEP Setting 5.0 Blood Gas Pressure Support 10 Blood Gas Notified Whom DT Blood Gas Notified Time 12/12/2016 8:41:24 AM Medications Medications Current Medications Furosemide (Lasix) 40 mg DAILY IV Last administered on 12/12/16 08:48; Admin Dose 40 MG; Start 12/11/16 at 15:30 Metoprolol Tartrate (Lopressor) 50 mg DAILY PO Last administered on 12/12/16 08:44; Admin Dose 50 MG; Start 12/12/16 at 09:00 Ranolazine (Ranexa) 1,000 mg Q12 PO Last administered on 12/12/16 08:47; Admin Dose 1,000 MG; Start 12/11/16 at 21:00 Diagnostic Test (Pha) (Accu-Chek) 1 ea 02 XX ; Start 12/12/16 at 02:00 Insulin Glargine (Lantus) 14 unit DAILY@08 SC ; Start 12/12/16 at 08:00 Insulin Aspart (Novolog Insulin Pen) NOVOLOG *MILD* ALGORI... Q4 SC ; Start at 17:00 Hydralazine HCl 5 mg 5 mg Q4H PRN IV ELEVATED BLOOD PRESSURE; Start 12/11/16 at 15:30 Fentanyl 100 ml @ 2.5 mls/hr TITRATE IV ; Start 12/11/16 at 19:00 Propofol 100 ml @ 2.847 mls/ hr Q12H IV Last administered on 12/11/16 20:31; Admin Dose 2.847 MLS/HR; Start 12/11/16 at 20:30 Magnesium Sulfate (Magnesium Sulfate 2 Gm/50 ml) 50 ml @ 25 mls/hr ONCE ONCE IVPB Last administered on 12/12/16 08:57; Admin Dose 25 MLS/HR; Start at 08:30; Stop 12/12/16 at 10:29 ALYSHA MUSA Dec 12, 2016 09:22
[2016-12-12] MEDS: ASPIRIN 81 MG TAB PO SCH (09:30)
[2016-12-12] MEDS: ALBUTEROL/IPRATROPIUM (NEB) 3 ML AMP HHN SCH ×3 (10:55→20:10)
--- NOTE | 2016-12-12 11:10 | RADRPT ---
Echocardiogram Report Patient Name: JOSE CRUZ HOLMAN Gender: Male Date: 1955 Study Date: 11-Dec-2016 Pugger Helper: Michael Rg CLEM Location: [address] [place] [address]. Physician: THA BALES Quality: Technically Difficult Study Procedures: Transthoracic echocardiogram with complete 2D, M-Mode, and doppler examination. Indications: Congestive Heart Failure. 2D/M Mode Doppler Measurement Value Normal Ranges Measurement Value Normal Ranges LVIDd 2D 4.7 3.5 - 5.6 cm AV Peak Nathan 1.2 m/sec LVIDs 2D 3.0 2.1 - 4.1 cm AV Peak PG 6.0 mmHg FS 2D 35.0 % LVOT Peak Nathan 0.8 m/sec LVPWd 2D 1.2 0.6 - 1.1 cm LVOT Peak PG 2.0 mmHg IVSd 2D 1.3 0.6 - 1.1 cm MV E Peak Nathan 1.0 m/sec IVS/LVPW 2D 1.1 MV A Peak Nathan 1.6 m/sec AoR Diam 2D 3.5 2.0 - 3.7 cm MV E/A 0.6 LA/Ao 2D 1 0 - 1 MV Decel Time 349 msec EDV 2D 103.0 cm3 MV E/A 0.6 ESV 2D 28.4 cm3 TR Peak Nathan 3.0 m/sec LA Dimen 2D 3.5 2.3 - 4.0 cm TR Peak PG 37.0 mmHg RVSP 45.0 mmHg Findings Left Ventricle: Normal left ventricular cavity size. Mild concentric left ventricular hypertrophy. Mild global left ventricular systolic dysfunction. Ejection fraction is visually estimated at 45 %. Tissue Doppler/Mitral Doppler indices are consistent with impaired relaxation (Stage I diastolic dysfunction). Resting Segmental Wall Motion Analysis: Abnormal septal motion secondary to cardiac surgery. Likely hypokinesis of the anterior wall, anteroseptum, and apex though very poor endocardial visualization. Right Ventricle: Normal right ventricular size. Normal right ventricular systolic function. Left Atrium: The left atrium is normal in size. Right Atrium: The right atrium is normal in size. Mitral Valve: Mild mitral leaflet calcification. Moderate mitral annular calcification. Trace mitral regurgitation. Aortic Valve: Aortic sclerosis without stenosis. Aortic cusps appear mildly calcified. Tricuspid Valve: Estimated peak PA systolic pressure 45 mmHg. There is trace tricuspid regurgitation. Pulmonic Valve: Normal pulmonic valve appearance. Pericardium: Normal pericardium with no significant pericardial effusion. Aorta: Normal aortic root. IVC: The IVC is not well visualized, patient on ventilator. Conclusions 1.Technically difficult study with very poor endocardial visualization. 2.Normal left ventricular cavity size. Mild concentric left ventricular hypertrophy. Mild global left ventricular systolic dysfunction. Ejection fraction is visually estimated at 45 %. Tissue Doppler/Mitral Doppler indices are consistent with impaired relaxation (Stage I diastolic dysfunction). Abnormal septal motion secondary to cardiac surgery. Likely hypokinesis of the anterior wall, anteroseptum, and apex though very poor endocardial visualization. 3.No significant valvular stenosis or regurgitation seen. 4.Estimated peak PA systolic pressure 45 mmHg plus RA pressure. Electronically Signed By: Silvano Daniels 12-Dec-2016 11:09:13 -0700 Patient Name: JOSE CRUZ HOLMAN Study Date: 11-Dec-2016 [id number]
--- NOTE | 2016-12-12 12:22 | CONS ---
Date/Time of Note Date/Time of Note DATE: 12/12/16 TIME: 12:17 Consult Date/Type/Reason Admit Date/Time Dec 11, 2016 at 07:11 Initial Consult Date 12/12/16 Type of Consultation: Pulm/CCM Ordering Provider: THA BALES MD Subjective No events on CPAP/PS. Awake and alert. Objective Vital Signs Date Time Temp Pulse Resp B/P Pulse Ox O2 Delivery O2 Flow Rate FiO2 12/12/16 11:00 60 27 100 26 12/11/16 21:30 142/71 12/11/16 21:00 Mechanical Ventilator 12/11/16 20:00 98.2 12/11/16 11:49 15.0 Intake and Output 12/11/16 12/11/16 12/12/16 15:00 23:00 07:00 Intake Total 57 ml 388 ml Output Total 425 ml 2000 ml 800 ml Balance -368 ml -1612 ml -800 ml Exam HEENT: Neck supple; no JVD; no LAD; +ET tube CVS: RRR, S1 and S2 CHEST: Clear ABD: Obese, NT, + BS EXT: No c/c; trace edema Results/Medications Result Diagram: 12/12/16 0455 12/12/16 0455 Results 24 hrs Laboratory Tests Test 12/11/16 12:25 12/11/16 16:28 12/11/16 17:15 12/11/16 20:15 Blood Gas Specimen Source Blood arterial Arterial Blood Date Drawn 12/11/2016 12:47:03 PM Arterial Blood pH (Temp corrected) 7.447 Arterial Blood pCO2 (Temp correct) 29.5 L Arterial Blood pO2 (Temp corrected) 87.9 Arterial Blood HCO3 19.9 L Arterial Blood Base Excess -2.9 Arterial Blood Oxygen Saturation 97.0 Koko Test N/A Arterial Blood Gas Puncture Site Right Brachial Arterial Blood Carboxyhemoglobin 0.4 Arterial Blood Methemoglobin 0.1 Blood Gas A-a O2 Differential 163.4 H Oxyhemoglobin Percent 96.5 Total Hemoglobin 14.3 Blood Gas Temperature 37.0 Blood Gas Respiration Rate 24.0 Blood Gas Actual Respiration Rate 24 Blood Gas Modality VENT - AC FiO2 40.0 Blood Gas Tidal Volume 500.0 Blood Gas Low PEEP Setting 0 Blood Gas Notified Whom Blood Gas Notified Time 12/11/2016 1:03:29 PM Sodium Level 148 H Potassium Level 4.8 Chloride Level 106 Carbon Dioxide Level 27 Anion Gap 20 H Blood Urea Nitrogen 24 H Creatinine 1.39 H Glucose Level 98 Calcium Level 8.6 Bedside Glucose 92 117 Test 12/12/16 04:55 12/12/16 07:00 White Blood Count 10.5 Red Blood Count 4.77 Hemoglobin 14.2 Hematocrit 44.0 Mean Corpuscular Volume 92.2 Mean Corpuscular Hemoglobin 29.8 Mean Corpuscular Hemoglobin Concent 32.3 Red Cell Distribution Width 13.2 Platelet Count 161 # Mean Platelet Volume 9.9 Neutrophils % 78.3 H Lymphocytes % 11.5 L Monocytes % 9.2 Eosinophils % 0.5 Basophils % 0.1 Nucleated Red Blood Cells % 0.0 Neutrophils # (Manual) 8.3 H Lymphocytes # 1.2 Monocytes # 1.0 H Eosinophils # 0.1 Basophils # 0.0 Nucleated Red Blood Cells # 0.0 Sodium Level 147 H Potassium Level 4.4 Chloride Level 104 Carbon Dioxide Level 30 Anion Gap 17 H Blood Urea Nitrogen 22 H Creatinine 1.51 H Glucose Level 86 Calcium Level 9.0 Phosphorus Level 3.3 Magnesium Level 1.6 L Blood Gas Specimen Source Blood arterial Arterial Blood Date Drawn 12/12/2016 8:20:54 AM Arterial Blood pH (Temp corrected) 7.451 H Arterial Blood pCO2 (Temp correct) 33.4 L Arterial Blood pO2 (Temp corrected) 81.4 Arterial Blood HCO3 22.7 Arterial Blood Base Excess -0.4 Arterial Blood Oxygen Saturation 96.3 Koko Test ACCEPTAB Arterial Blood Gas Puncture Site Right Radial Arterial Blood Carboxyhemoglobin 0.9 Arterial Blood Methemoglobin 0.1 Blood Gas A-a O2 Differential 64.4 H Oxyhemoglobin Percent 95.3 Total Hemoglobin 15.9 Blood Gas Temperature 37.0 Blood Gas Actual Respiration Rate 23 Blood Gas Modality VENT - CPAP FiO2 26.0 Blood Gas Low PEEP Setting 5.0 Blood Gas Pressure Support 10 Blood Gas Notified Whom DT Blood Gas Notified Time 12/12/2016 8:41:24 AM Medications Current Medications Furosemide (Lasix) 40 mg DAILY IV Last administered on 12/12/16 08:48; Admin Dose 40 MG; Start 12/11/16 at 15:30 Ranolazine (Ranexa) 1,000 mg Q12 PO Last administered on 12/12/16 08:47; Admin Dose 1,000 MG; Start 12/11/16 at 21:00 Diagnostic Test (Pha) (Accu-Chek) 1 ea 02 XX ; Start 12/12/16 at 02:00 Insulin Glargine (Lantus) 14 unit DAILY@08 SC ; Start 12/12/16 at 08:00 Insulin Aspart (Novolog Insulin Pen) NOVOLOG *MILD* ALGORI... Q4 SC ; Start at 17:00 Hydralazine HCl 5 mg 5 mg Q4H PRN IV ELEVATED BLOOD PRESSURE; Start 12/11/16 at 15:30 Fentanyl 100 ml @ 2.5 mls/hr TITRATE IV ; Start 12/11/16 at 19:00 Propofol (Diprivan) 100 ml @ 2.847 mls/ hr Q12H IV Last administered on t 09:00; Admin Dose 2.847 MLS/HR; Start 12/11/16 at 20:30 Metoprolol Tartrate (Lopressor) 50 mg BID PO ; Start 12/12/16 at 21:00 Losartan Potassium (Cozaar) 100 mg DAILY PO ; Start 12/13/16 at 09:00 Aspirin (Aspirin) 81 mg DAILY PO ; Start 12/12/16 at 09:30 Atorvastatin Calcium (Lipitor) 40 mg HS PO ; Start 12/12/16 at 21:00 Assessment/Plan Additional Assessment/Plan IMPRESSION: 1. Acute hypoxemic respiratory failure, likely secondary to systolic versus diastolic dysfunction--now intubated. 2. Underlying history of coronary artery disease. 3. Obstructive sleep apnea. 4. Azotemia 5. DM PLAN: 1. Extubate--BiPAP on standby 2. Afterload reduction 3. Follow I/O's and renal fxn 4. Outpatient sleep study. 5. DVT and GI prophylaxis. 35 min cc time MIROSLAVA SHAW MD Dec 12, 2016 12:22
--- NOTE | 2016-12-12 14:44 | PN ---
Date/Time of Note Date/Time of Note DATE: 12/12/16 TIME: 14:42 Assessment/Plan VTE Prophylaxis VTE Prophylaxis Intervention: LMWH, other Lines/Catheters IV Catheter Type (from Nrsg): Intraosseous Central line still needed: Yes Urinary Cath still in place: Yes Reason Cath still needed: urinary retention Assessment/Plan Chief Complaint/Hosp Course 61 yo male with h/o CAD s/p CABG, CKD II, DMII, PPM for likely SSS/A Fib on Xarelto who presents with acute hypoxic and hyperpapneic respiratory failure s/ p emergent intubation in the ED. Likely from acute cardiogenic pulmonary edema. Does not show evidence of acute [place]. PULM: s/p intubation for hypoxic/hypercapneic respiratory failure. Suspect cardiogenic pulmonary edema. No stable and extubated - O2 by NC as needed, BIPAP if needed CV: h/o CAD s/p CABG, likely acute systolic and diastolic CHF exacerbation - Unclear precipitant to acute pulmonary edema - Diuresis - Aspirin, Statin chronic - Troponins exclude acute [place] Lactic acidosis: - Resolved Suspect permanent A Fib as on Xarelto w PPM suspect for SSS - Continue Xarelto - A paced at 60 ENDO: DMII: - Basal bolus insulin RENAL: - CKD II is stable - Trend creatinine Hypernatremia: - FW as needed Full code Problems: Subjective 24 Hr Interval Summary Free Text/Dictation Extubated today, stable on NC Exam/Review of Systems Vital Signs Vitals Vital Signs Date Time Temp Pulse Resp B/P Pulse Ox O2 Delivery O2 Flow Rate FiO2 12/12/16 12:00 60 12/12/16 12:00 22 127/73 100 Mechanical Ventilator 12/12/16 12:00 98.4 12/12/16 11:00 26 12/11/16 11:49 15.0 Intake and Output 12/11/16 12/11/16 12/12/16 15:00 23:00 07:00 Intake Total 57 ml 388 ml Output Total 425 ml 2000 ml 800 ml Balance -368 ml -1612 ml -800 ml Exam Well appearing NAD + JVD Lungs clear Abdomen obese, soft nt No peripheral edema Results Result Diagram: 12/12/16 0455 12/12/16 0455 Results 24 hrs Laboratory Tests Test 12/11/16 16:28 12/11/16 17:15 12/11/16 20:15 12/12/16 01:49 Sodium Level 148 H Potassium Level 4.8 Chloride Level 106 Carbon Dioxide Level 27 Anion Gap 20 H Blood Urea Nitrogen 24 H Creatinine 1.39 H Glucose Level 98 Calcium Level 8.6 Bedside Glucose 92 117 118 Test 12/12/16 04:55 12/12/16 05:45 12/12/16 07:00 12/12/16 08:06 White Blood Count 10.5 Red Blood Count 4.77 Hemoglobin 14.2 Hematocrit 44.0 Mean Corpuscular Volume 92.2 Mean Corpuscular Hemoglobin 29.8 Mean Corpuscular Hemoglobin Concent 32.3 Red Cell Distribution Width 13.2 Platelet Count 161 # Mean Platelet Volume 9.9 Neutrophils % 78.3 H Lymphocytes % 11.5 L Monocytes % 9.2 Eosinophils % 0.5 Basophils % 0.1 Nucleated Red Blood Cells % 0.0 Neutrophils # (Manual) 8.3 H Lymphocytes # 1.2 Monocytes # 1.0 H Eosinophils # 0.1 Basophils # 0.0 Nucleated Red Blood Cells # 0.0 Sodium Level 147 H Potassium Level 4.4 Chloride Level 104 Carbon Dioxide Level 30 Anion Gap 17 H Blood Urea Nitrogen 22 H Creatinine 1.51 H Glucose Level 86 Calcium Level 9.0 Phosphorus Level 3.3 Magnesium Level 1.6 L Bedside Glucose 81 86 Blood Gas Specimen Source Blood arterial Arterial Blood Date Drawn 12/12/2016 8:20:54 AM Arterial Blood pH (Temp corrected) 7.451 H Arterial Blood pCO2 (Temp correct) 33.4 L Arterial Blood pO2 (Temp corrected) 81.4 Arterial Blood HCO3 22.7 Arterial Blood Base Excess -0.4 Arterial Blood Oxygen Saturation 96.3 Koko Test ACCEPTAB Arterial Blood Gas Puncture Site Right Radial Arterial Blood Carboxyhemoglobin 0.9 Arterial Blood Methemoglobin 0.1 Blood Gas A-a O2 Differential 64.4 H Oxyhemoglobin Percent 95.3 Total Hemoglobin 15.9 Blood Gas Temperature 37.0 Blood Gas Actual Respiration Rate 23 Blood Gas Modality VENT - CPAP FiO2 26.0 Blood Gas Low PEEP Setting 5.0 Blood Gas Pressure Support 10 Blood Gas Notified Whom DT Blood Gas Notified Time 12/12/2016 8:41:24 AM Test 12/12/16 12:40 12/12/16 13:10 Bedside Glucose 170 Troponin I 0.039 Medications Medications Current Medications Furosemide (Lasix) 40 mg DAILY IV Last administered on 12/12/16 08:48; Admin Dose 40 MG; Start 12/11/16 at 15:30 Ranolazine (Ranexa) 1,000 mg Q12 PO Last administered on 12/12/16 08:47; Admin Dose 1,000 MG; Start 12/11/16 at 21:00 Diagnostic Test (Pha) (Accu-Chek) 1 ea 02 XX ; Start 12/12/16 at 02:00 Insulin Glargine (Lantus) 14 unit DAILY@08 SC ; Start 12/12/16 at 08:00 Insulin Aspart (Novolog Insulin Pen) NOVOLOG *MILD* ALGORI... Q4 SC Last administered on 12/12/16 12:44; Admin Dose 1 UNIT; Start 12/11/16 at 17:00 Hydralazine HCl 5 mg 5 mg Q4H PRN IV ELEVATED BLOOD PRESSURE; Start 12/11/16 at 15:30 Fentanyl 100 ml @ 2.5 mls/hr TITRATE IV ; Start 12/11/16 at 19:00 Propofol (Diprivan) 100 ml @ 2.847 mls/ hr Q12H IV Last administered on 09:00; Admin Dose 2.847 MLS/HR; Start 12/11/16 at 20:30 Metoprolol Tartrate (Lopressor) 50 mg BID PO ; Start 12/12/16 at 21:00 Losartan Potassium (Cozaar) 100 mg DAILY PO ; Start 12/13/16 at 09:00 Aspirin (Aspirin) 81 mg DAILY PO ; Start 12/12/16 at 09:30 Atorvastatin Calcium (Lipitor) 40 mg HS PO ; Start 12/12/16 at 21:00 THA BALES MD Dec 12, 2016 14:44
[2016-12-12] MEDS: RIVAROXABAN 15 MG TABLET PO SCH ×2 (18:22→20:37)
[2016-12-12] MEDS: METOPROLOL 50 MG TAB PO SCH (20:37)
[2016-12-12] MEDS: ATORVASTATIN 40 MG TAB PO SCH (20:37)
[2016-12-13] VITALS (22 sets, daily range): BP systolic 91–177; BP diastolic 56–158; PULSE 60–79; RESP 16–33
[2016-12-13] MEDS: INSULIN ASPART [NOVOLOG] 3 ML PEN SC SCH ×6 (01:00→22:54)
[2016-12-13 05:53] LABS: BASOPHILS % 0.1 % (0.0-2.0); EOSINOPHILS # 0.1 10^3/ul (0.0-0.5); EOSINOPHILS % 0.6 % (0.0-7.0); HEMATOCRIT 46.3 % (42.0-52.0); HEMOGLOBIN 14.9 g/dl (14.0-18.0); LYMPHOCYTES % 9.9 % (15.0-51.0); MEAN CORPUSCULAR HEMOGLOBIN 30.3 pg (29.0-33.0); MEAN CORPUSCULAR HGB CONC 32.2 g/dl (32.0-37.0); MEAN CORPUSCULAR VOLUME 94.1 fl (82.0-101.0); MEAN PLATELET VOLUME 10.2 fl (7.4-10.4); MONOCYTE # 0.9 10^3/ul (0.3-0.9); MONOCYTES % 9.1 % (0.0-11.0); NEUTROPHILS % 79.9 % (39.0-77.0); PLATELET COUNT 131 10^3/UL (140-415); POSITIVE DIFF @See below; RED BLOOD COUNT 4.92 10^6/ul (4.70-6.10); RED CELL DISTRIBUTION WIDTH 12.7 % (11.5-14.5); WHITE BLOOD COUNT 9.6 10^3/ul (4.8-10.8)
[2016-12-13 07:13] LABS: CREATININE 1.2 mg/dl (0.61-1.24); POTASSIUM 3.9 mmol/L (3.5-5.1)
[2016-12-13] MEDS: ALBUTEROL/IPRATROPIUM (NEB) 3 ML AMP HHN SCH ×3 (08:32→19:45)
[2016-12-13] MEDS: FUROSEMIDE 40 MG INJ IV SCH (08:50)
[2016-12-13] MEDS: LOSARTAN 50 MG TAB PO SCH (08:50)
[2016-12-13] MEDS: RANOLAZINE (SR) 500 MG TAB PO SCH ×2 (08:50→22:42)
[2016-12-13] MEDS: METOPROLOL 50 MG TAB PO SCH ×2 (08:51→20:59)
[2016-12-13] MEDS: INSULIN GLARGINE [LANtus] 3 ML PEN SC SCH (08:53)
[2016-12-13] MEDS: ASPIRIN 81 MG TAB PO SCH (08:59)
--- NOTE | 2016-12-13 11:00 | CONS ---
Date/Time of Note Date/Time of Note DATE: 12/13/16 TIME: 10:56 Consult Date/Type/Reason Admit Date/Time Dec 11, 2016 at 07:11 Initial Consult Date 12/12/16 Type of Consultation: Pulm/CCM Ordering Provider: THA BALES MD Subjective No events. Tolerated extubation. Objective Vital Signs Date Time Temp Pulse Resp B/P Pulse Ox O2 Delivery O2 Flow Rate FiO2 12/13/16 09:00 73 22 136/111 95 Nasal Cannula 12/13/16 08:33 2.0 12/13/16 08:00 98.8 12/12/16 11:00 26 Intake and Output 12/12/16 12/12/16 12/13/16 15:00 23:00 07:00 Intake Total 63 ml Output Total 1230 ml 1070 ml 600 ml Balance -1167 ml -1070 ml -600 ml Exam HEENT: Neck supple; no JVD; no LAD; crowded O/P large neck CVS: RRR, S1 and S2 CHEST: Clear ABD: Obese, NT, + BS EXT: No c/c; trace edema Results/Medications Result Diagram: 12/13/16 0452 12/13/16 0452 Results 24 hrs Laboratory Tests Test 12/12/16 12:40 12/12/16 13:10 12/12/16 18:21 12/12/16 20:45 Bedside Glucose 170 171 145 Troponin I 0.039 Test 12/13/16 01:20 12/13/16 04:52 12/13/16 05:59 12/13/16 08:36 Bedside Glucose 132 156 149 White Blood Count 9.6 Red Blood Count 4.92 Hemoglobin 14.9 Hematocrit 46.3 Mean Corpuscular Volume 94.1 Mean Corpuscular Hemoglobin 30.3 Mean Corpuscular Hemoglobin Concent 32.2 Red Cell Distribution Width 12.7 Platelet Count 131 L Mean Platelet Volume 10.2 Neutrophils % 79.9 H Lymphocytes % 9.9 L Monocytes % 9.1 Eosinophils % 0.6 Basophils % 0.1 Nucleated Red Blood Cells % 0.0 Neutrophils # (Manual) 7.6 H Lymphocytes # 1.0 Monocytes # 0.9 Eosinophils # 0.1 Basophils # 0.0 Nucleated Red Blood Cells # 0.0 Sodium Level 139 Potassium Level 3.9 Chloride Level 101 Carbon Dioxide Level 26 Anion Gap 16 Blood Urea Nitrogen 23 H Creatinine 1.20 Glucose Level 157 Lactic Acid Level 2.0 Calcium Level 9.0 Medications Current Medications Furosemide (Lasix) 40 mg DAILY IV Last administered on 12/13/16 08:50; Admin Dose 40 MG; Start 12/11/16 at 15:30 Ranolazine (Ranexa) 1,000 mg Q12 PO Last administered on 12/13/16 08:50; Admin Dose 1,000 MG; Start 12/11/16 at 21:00 Diagnostic Test (Pha) (Accu-Chek) 1 ea 02 XX ; Start 12/12/16 at 02:00 Insulin Glargine (Lantus) 14 unit DAILY@08 SC Last administered on 12/13/16 08 :53; Admin Dose 14 UNIT; Start 12/12/16 at 08:00 Insulin Aspart (Novolog Insulin Pen) NOVOLOG *MILD* ALGORI... Q4 SC Last administered on 12/13/16 08:40; Admin Dose 1 UNIT; Start 12/11/16 at 17:00 Hydralazine HCl 5 mg 5 mg Q4H PRN IV ELEVATED BLOOD PRESSURE; Start 12/11/16 at 15:30 Fentanyl (Sublimaze) 100 ml @ 2.5 mls/hr TITRATE IV ; Start 12/11/16 at 19:00 Metoprolol Tartrate (Lopressor) 50 mg BID PO Last administered on 12/13/16 08: 51; Admin Dose 50 MG; Start 12/12/16 at 21:00 Losartan Potassium (Cozaar) 100 mg DAILY PO Last administered on 12/13/16 08: 50; Admin Dose 100 MG; Start 12/13/16 at 09:00 Aspirin (Aspirin) 81 mg DAILY PO ; Start 12/12/16 at 09:30 Atorvastatin Calcium (Lipitor) 40 mg HS PO Last administered on 12/12/16 20:37 ; Admin Dose 40 MG; Start 12/12/16 at 21:00 Assessment/Plan Additional Assessment/Plan IMPRESSION: 1. Acute hypoxemic respiratory failure, likely secondary to systolic versus diastolic dysfunction--now intubated. 2. Underlying history of coronary artery disease. 3. Obstructive sleep apnea. 4. Azotemia 5. DM PLAN: 1. Nocturnal CPAP/BiPAP 2. Afterload reduction 3. Renal fxn improving with diuresis 4. Outpatient sleep study 5. DVT and GI prophylaxis 6. Mobilize OOB/PT/OT 35 min cc time MIROSLAVA SHAW MD Dec 13, 2016 11:00
--- NOTE | 2016-12-13 11:38 | CONS ---
Date/Time of Note Date/Time of Note DATE: 12/13/16 TIME: 11:33 Assessment/Plan Assessment/Plan Chief Complaint/Hosp Course Acute respiratory failure: Secondary to pulmonary edema. Intubated emergently on admission, now extubated 12/12 and doing well. Acute on chronic systolic heart failure: EF ~45% but poor echo study. Close to euvolemic. His episodes seems to be a flash pulmonary edema episode of unclear etiology so he may not need high dose diuretics on discharge. CAD s/p CABG (unknown details): trops negative Cardiomyopathy (unknown EF) paroxysmal afib on Xarelto SSS s/p PPM CKD: renal function better HTN -decrease to lasix 20mg PO daily tomorrow (received IV lasix today) -possible d/c tomorrow -ASA, lipitor -losartan 100mg -metoprolol 50mg BID Problems: Consultation Date/Type/Reason Admit Date/Time Dec 11, 2016 at 07:11 Initial Consult Date 12/12/16 Type of Consultation: Cardilogy Referring Provider: THA BALES MD 24 HR Interval Summary Free Text/Dictation Extubated successfully. Doing well. Notes that he was doing well until the am of admission when he woke up to use the restroom and was significantly SOB. He takes lasix as needed and is very diligent about salt restriction. He had his CABG 15 yrs ago. 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 Exam/Review of Systems Vital Signs Vitals Vital Signs Date Time Temp Pulse Resp B/P Pulse Ox O2 Delivery O2 Flow Rate FiO2 12/13/16 10:00 60 26 124/67 95 Nasal Cannula 12/13/16 08:33 2.0 12/13/16 08:00 98.8 12/12/16 11:00 26 Intake and Output 12/12/16 12/12/16 12/13/16 15:00 23:00 07:00 Intake Total 63 ml Output Total 1230 ml 1070 ml 600 ml Balance -1167 ml -1070 ml -600 ml Exam Constitutional: alert, oriented Psych: no complaints Head: atraumatic, normocephalic Neck: supple, No jvd Respiratory: crackles/rales (mild at bases ), No clear to auscultation Cardiovascular: regular rate and rhythm, No edema, No systolic murmur Gastrointestinal: non-tender, soft Neurological: nl mental status, nl speech Results Result Diagram: 12/13/16 0452 12/13/16 0452 Results 24 hrs Laboratory Tests Test 12/12/16 12:40 12/12/16 13:10 12/12/16 18:21 12/12/16 20:45 Bedside Glucose 170 171 145 Troponin I 0.039 Test 12/13/16 01:20 12/13/16 04:52 12/13/16 05:59 12/13/16 08:36 Bedside Glucose 132 156 149 White Blood Count 9.6 Red Blood Count 4.92 Hemoglobin 14.9 Hematocrit 46.3 Mean Corpuscular Volume 94.1 Mean Corpuscular Hemoglobin 30.3 Mean Corpuscular Hemoglobin Concent 32.2 Red Cell Distribution Width 12.7 Platelet Count 131 L Mean Platelet Volume 10.2 Neutrophils % 79.9 H Lymphocytes % 9.9 L Monocytes % 9.1 Eosinophils % 0.6 Basophils % 0.1 Nucleated Red Blood Cells % 0.0 Neutrophils # (Manual) 7.6 H Lymphocytes # 1.0 Monocytes # 0.9 Eosinophils # 0.1 Basophils # 0.0 Nucleated Red Blood Cells # 0.0 Sodium Level 139 Potassium Level 3.9 Chloride Level 101 Carbon Dioxide Level 26 Anion Gap 16 Blood Urea Nitrogen 23 H Creatinine 1.20 Glucose Level 157 Lactic Acid Level 2.0 Calcium Level 9.0 Medications Medications Current Medications Furosemide (Lasix) 40 mg DAILY IV Last administered on 12/13/16 08:50; Admin Dose 40 MG; Start 12/11/16 at 15:30 Ranolazine (Ranexa) 1,000 mg Q12 PO Last administered on 12/13/16 08:50; Admin Dose 1,000 MG; Start 12/11/16 at 21:00 Diagnostic Test (Pha) (Accu-Chek) 1 ea 02 XX ; Start 12/12/16 at 02:00 Insulin Glargine (Lantus) 14 unit DAILY@08 SC Last administered on 12/13/16 08 :53; Admin Dose 14 UNIT; Start 12/12/16 at 08:00 Insulin Aspart (Novolog Insulin Pen) NOVOLOG *MILD* ALGORI... Q4 SC Last administered on 12/13/16 08:40; Admin Dose 1 UNIT; Start 12/11/16 at 17:00 Hydralazine HCl 5 mg 5 mg Q4H PRN IV ELEVATED BLOOD PRESSURE; Start 12/11/16 at 15:30 Fentanyl (Sublimaze) 100 ml @ 2.5 mls/hr TITRATE IV ; Start 12/11/16 at 19:00 Metoprolol Tartrate (Lopressor) 50 mg BID PO Last administered on 12/13/16 08: 51; Admin Dose 50 MG; Start 12/12/16 at 21:00 Losartan Potassium (Cozaar) 100 mg DAILY PO Last administered on 12/13/16 08: 50; Admin Dose 100 MG; Start 12/13/16 at 09:00 Aspirin (Aspirin) 81 mg DAILY PO ; Start 12/12/16 at 09:30 Atorvastatin Calcium (Lipitor) 40 mg HS PO Last administered on 12/12/16 20:37 ; Admin Dose 40 MG; Start 12/12/16 at 21:00 ALYSHA MUSA Dec 13, 2016 11:37
--- NOTE | 2016-12-13 17:42 | PN ---
Date/Time of Note Date/Time of Note DATE: 12/13/16 TIME: 17:34 Assessment/Plan VTE Prophylaxis VTE Prophylaxis Intervention: LMWH Lines/Catheters IV Catheter Type (from Nrs): Peripheral IV Urinary Cath still in place: Yes Reason Cath still needed: urinary retention Assessment/Plan Chief Complaint/Hosp Course 61 yo male with h/o CAD s/p CABG, CKD II, DMII, PPM for likely SSS/A Fib on Xarelto who presented with acute hypoxic and hyperpapneic respiratory failure s/ p emergent intubation in the ED. Likely from acute cardiogenic pulmonary edema. Does not show evidence of acute IL. He improved rapidly and easily extubated to room air. PULM: s/p intubation for hypoxic/hypercapneic respiratory failure. Suspect cardiogenic pulmonary edema. Now stable and extubated - No acute issues CV: h/o CAD s/p CABG, likely acute systolic and diastolic CHF exacerbation - Unclear precipitant to acute pulmonary edema - Appears euvolemic now - Aspirin, Statin chronic - Troponins exclude acute IL Lactic acidosis: - Resolved Suspect permanent A Fib as on Xarelto w PPM suspect for SSS - Continue Xarelto - A paced at 60 ENDO: DMII: - Basal bolus insulin RENAL: - CKD II is stable - Trend creatinine Hypernatremia: - FW as needed Full code Problems: Subjective 24 Hr Interval Summary Free Text/Dictation Patient extubated Doing great today Again says he did not feel any symptoms prior to day of presentation No SOB currently Exam/Review of Systems Vital Signs Vitals Vital Signs Date Time Temp Pulse Resp B/P Pulse Ox O2 Delivery O2 Flow Rate FiO2 12/13/16 16:00 60 12/13/16 16:00 98.5 27 122/58 96 Room Air 12/13/16 08:33 2.0 12/12/16 11:00 26 Intake and Output 12/12/16 12/12/16 12/13/16 15:00 23:00 07:00 Intake Total 63 ml Output Total 1230 ml 1070 ml 600 ml Balance -1167 ml -1070 ml -600 ml Exam Comfortable, AOx3 CV RRR, flat neck veins Lungs clear Abdomen obese, soft nt No peripheral edema Results Result Diagram: 12/13/16 0452 12/13/16 0452 Results 24 hrs Laboratory Tests Test 12/12/16 18:21 12/12/16 20:45 12/13/16 01:20 12/13/16 04:52 Bedside Glucose 171 145 132 White Blood Count 9.6 Red Blood Count 4.92 Hemoglobin 14.9 Hematocrit 46.3 Mean Corpuscular Volume 94.1 Mean Corpuscular Hemoglobin 30.3 Mean Corpuscular Hemoglobin Concent 32.2 Red Cell Distribution Width 12.7 Platelet Count 131 L Mean Platelet Volume 10.2 Neutrophils % 79.9 H Lymphocytes % 9.9 L Monocytes % 9.1 Eosinophils % 0.6 Basophils % 0.1 Nucleated Red Blood Cells % 0.0 Neutrophils # (Manual) 7.6 H Lymphocytes # 1.0 Monocytes # 0.9 Eosinophils # 0.1 Basophils # 0.0 Nucleated Red Blood Cells # 0.0 Sodium Level 139 Potassium Level 3.9 Chloride Level 101 Carbon Dioxide Level 26 Anion Gap 16 Blood Urea Nitrogen 23 H Creatinine 1.20 Glucose Level 157 Lactic Acid Level 2.0 Calcium Level 9.0 Test 12/13/16 05:59 12/13/16 08:36 12/13/16 13:32 Bedside Glucose 156 149 141 Medications Medications Current Medications Ranolazine (Ranexa) 1,000 mg Q12 PO Last administered on 12/13/16 08:50; Admin Dose 1,000 MG; Start 12/11/16 at 21:00 Diagnostic Test (Pha) (Accu-Chek) 1 ea 02 XX ; Start 12/12/16 at 02:00 Insulin Glargine (Lantus) 14 unit DAILY@08 SC Last administered on 12/13/16 08 :53; Admin Dose 14 UNIT; Start 12/12/16 at 08:00 Insulin Aspart (Novolog Insulin Pen) NOVOLOG *MILD* ALGORI... Q4 SC Last administered on 12/13/16 08:40; Admin Dose 1 UNIT; Start 12/11/16 at 17:00 Hydralazine HCl 5 mg 5 mg Q4H PRN IV ELEVATED BLOOD PRESSURE; Start 12/11/16 at 15:30 Fentanyl (Sublimaze) 100 ml @ 2.5 mls/hr TITRATE IV ; Start 12/11/16 at 19:00 Metoprolol Tartrate (Lopressor) 50 mg BID PO Last administered on 12/13/16 08: 51; Admin Dose 50 MG; Start 12/12/16 at 21:00 Losartan Potassium (Cozaar) 100 mg DAILY PO Last administered on 12/13/16 08: 50; Admin Dose 100 MG; Start 12/13/16 at 09:00 Aspirin (Aspirin) 81 mg DAILY PO ; Start 12/12/16 at 09:30 Atorvastatin Calcium (Lipitor) 40 mg HS PO Last administered on 12/12/16 20:37 ; Admin Dose 40 MG; Start 12/12/16 at 21:00 Furosemide (Lasix) 20 mg DAILY@06 PO ; Start 12/14/16 at 06:00 THA BALES MD Dec 13, 2016 17:41
[2016-12-13] MEDS ORDERED: GLUCAGON 1 MG INJ IM PRN (20:30)
[2016-12-13] MEDS ORDERED: GLUCOSE GEL 15 GRAM TUBE BUCCAL PRN (20:30)
[2016-12-13] MEDS ORDERED: DEXTROSE 50% 50 ML SYRINGE IV PRN ×2 (20:30)
[2016-12-13] MEDS ORDERED: GLUCOSE GEL 15 GRAM TUBE PO PRN ×2 (20:30)
[2016-12-13] MEDS: ATORVASTATIN 40 MG TAB PO SCH (20:59)
[2016-12-14] VITALS (7 sets, daily range): BP systolic 113–155; BP diastolic 55–74; PULSE 60–72; RESP 18–20
[2016-12-14] MEDS: INSULIN ASPART [NOVOLOG] 3 ML PEN SC SCH ×4 (01:00→12:56)
[2016-12-14] MEDS: ACCU-CHEK XX SCH (02:00)
[2016-12-14] MEDS ORDERED: FUROSEMIDE 20 MG TAB PO SCH (06:00)
[2016-12-14 07:37] LABS: BASOPHILS % 0.2 % (0.0-2.0); EOSINOPHILS # 0.1 10^3/ul (0.0-0.5); EOSINOPHILS % 1.3 % (0.0-7.0); HEMOGLOBIN 14.2 g/dl (14.0-18.0); LYMPHOCYTES % 11.5 % (15.0-51.0); MEAN CORPUSCULAR VOLUME 90.9 fl (82.0-101.0); MEAN PLATELET VOLUME 10.2 fl (7.4-10.4); MONOCYTE # 0.7 10^3/ul (0.3-0.9); NEUTROPHILS % 78.5 % (39.0-77.0); PLATELET COUNT 159 10^3/UL (140-415); RED BLOOD COUNT 4.73 10^6/ul (4.70-6.10); RED CELL DISTRIBUTION WIDTH 12.5 % (11.5-14.5); WHITE BLOOD COUNT 8.3 10^3/ul (4.8-10.8)
[2016-12-14] MEDS: ALBUTEROL/IPRATROPIUM (NEB) 3 ML AMP HHN SCH (08:03)
[2016-12-14] MEDS: ASPIRIN 81 MG TAB PO SCH (09:21)
[2016-12-14] MEDS: METOPROLOL 50 MG TAB PO SCH (09:25)
[2016-12-14] MEDS: RANOLAZINE (SR) 500 MG TAB PO SCH (09:25)
[2016-12-14] MEDS: LOSARTAN 50 MG TAB PO SCH (09:26)
[2016-12-14 09:27] LABS: CALCIUM 9.1 mg/dl (8.4-10.2); CREATININE 1.58 mg/dl (0.61-1.24); POTASSIUM 3.7 mmol/L (3.5-5.1)
--- NOTE | 2016-12-14 09:47 | CONS ---
Date/Time of Note Date/Time of Note DATE: 12/14/16 TIME: 09:45 Assessment/Plan Assessment/Plan Chief Complaint/Hosp Course Acute respiratory failure: Secondary to pulmonary edema. Intubated emergently on admission, now extubated 12/12 and doing well. Acute on chronic systolic heart failure: EF ~45% but poor echo study. His episodes seems to be a flash pulmonary edema episode of unclear etiology so he may not need high dose diuretics on discharge. ~Euvolemic CAD s/p CABG (unknown details): trops negative Cardiomyopathy (unknown EF) paroxysmal afib on Xarelto SSS s/p PPM CKD: renal function better HTN -ok for d/c from my perspective if ambulating well without symptoms -lasix 20mg PO daily -ASA, lipitor -losartan 100mg -metoprolol 50mg BID Problems: Consultation Date/Type/Reason Admit Date/Time Dec 11, 2016 at 07:11 Initial Consult Date 12/12/16 Type of Consultation: Cardilogy Referring Provider: THA BALES MD 24 HR Interval Summary Free Text/Dictation Transferred to tele. Upset about care from last night's RN. Otherwise no CP or SOB. Exam/Review of Systems Vital Signs Vitals Vital Signs Date Time Temp Pulse Resp B/P Pulse Ox O2 Delivery O2 Flow Rate FiO2 12/14/16 08:38 64 12/14/16 08:04 98.0 18 146/65 94 12/14/16 08:00 Nasal Cannula 2.0 12/13/16 19:47 21 Intake and Output 12/13/16 12/13/16 12/14/16 15:00 23:00 07:00 Intake Total 120 ml Output Total 630 ml 275 ml Balance -510 ml -275 ml Exam Constitutional: alert, oriented Psych: no complaints Head: atraumatic, normocephalic Neck: No jvd Respiratory: crackles/rales (very mild), No clear to auscultation Cardiovascular: regular rate and rhythm, No edema, No systolic murmur Gastrointestinal: non-tender, soft Neurological: nl mental status, nl speech Skin: No rash or lesions Results Result Diagram: 12/14/16 0650 12/14/16 0650 Results 24 hrs Laboratory Tests Test 12/13/16 13:32 12/13/16 17:25 12/13/16 21:03 12/13/16 22:51 Bedside Glucose 141 122 257 H 223 H Test 12/14/16 04:51 12/14/16 06:50 12/14/16 08:40 Bedside Glucose 181 161 White Blood Count 8.3 Red Blood Count 4.73 Hemoglobin 14.2 Hematocrit 43.0 Mean Corpuscular Volume 90.9 Mean Corpuscular Hemoglobin 30.0 Mean Corpuscular Hemoglobin Concent 33.0 Red Cell Distribution Width 12.5 Platelet Count 159 # Mean Platelet Volume 10.2 Neutrophils % 78.5 H Lymphocytes % 11.5 L Monocytes % 8.0 Eosinophils % 1.3 Basophils % 0.2 Nucleated Red Blood Cells % 0.0 Neutrophils # (Manual) 6.5 Lymphocytes # 1.0 Monocytes # 0.7 Eosinophils # 0.1 Basophils # 0.0 Nucleated Red Blood Cells # 0.0 Sodium Level 145 H Potassium Level 3.7 Chloride Level 99 Carbon Dioxide Level 30 Anion Gap 20 H Blood Urea Nitrogen 32 H Creatinine 1.58 H Glucose Level 172 Calcium Level 9.1 Medications Medications Current Medications Ranolazine (Ranexa) 1,000 mg Q12 PO Last administered on 12/14/16 09:25; Admin Dose 1,000 MG; Start 12/11/16 at 21:00 Diagnostic Test (Pha) (Accu-Chek) 1 ea 02 XX Last administered on 12/14/16 02: 00; Admin Dose 1 EA; Start 12/12/16 at 02:00 Insulin Glargine (Lantus) 14 unit DAILY@08 SC Last administered on 12/13/16 08 :53; Admin Dose 14 UNIT; Start 12/12/16 at 08:00 Hydralazine HCl (Apresoline) 5 mg Q4H PRN IV ELEVATED BLOOD PRESSURE; Start at 15:30 Metoprolol Tartrate (Lopressor) 50 mg BID PO Last administered on 12/14/16 09: 25; Admin Dose 50 MG; Start 12/12/16 at 21:00 Losartan Potassium (Cozaar) 100 mg DAILY PO Last administered on 12/14/16 09: 26; Admin Dose 100 MG; Start 12/13/16 at 09:00 Aspirin (Aspirin) 81 mg DAILY PO Last administered on 12/14/16 09:21; Admin Dose 81 MG; Start 12/12/16 at 09:30 Atorvastatin Calcium (Lipitor) 40 mg HS PO Last administered on 12/13/16 20:59 ; Admin Dose 40 MG; Start 12/12/16 at 21:00 Furosemide (Lasix) 20 mg DAILY@06 PO Last administered on 12/14/16 06:39; Admin Dose 20 MG; Start 12/14/16 at 06:00 Miscellaneous Information 1 ea NOTE XX ; Start 12/13/16 at 20:30 Glucose (Glutose) 15 gm Q15M PRN PO DECREASED GLUCOSE; Start 12/13/16 at 20:30 Glucose (Glutose) 22.5 gm Q15M PRN PO DECREASED GLUCOSE; Start 12/13/16 at 20: 30 Dextrose (D50w Syringe) 25 ml Q15M PRN IV DECREASED GLUCOSE; Start 12/13/16 at 20:30 Dextrose (D50w Syringe) 50 ml Q15M PRN IV DECREASED GLUCOSE; Start 12/13/16 at 20:30 Glucagon (Glucagen) 1 mg Q15M PRN IM DECREASED GLUCOSE; Start 12/13/16 at 20:30 Glucose (Glutose) 15 gm Q15M PRN BUCCAL DECREASED GLUCOSE; Start 12/13/16 at 20 :30 ALYSHA MUSA Dec 14, 2016 09:47
[2016-12-14] MEDS: INSULIN GLARGINE [LANtus] 3 ML PEN SC SCH (09:59)
--- NOTE | 2016-12-14 11:32 | CONS ---
Date/Time of Note Date/Time of Note DATE: 12/14/16 TIME: 11:30 Assessment/Plan Assessment/Plan Additional Assessment/Plan Assessment and recommendations; 1. Patient admitted with acute CHF exacerbation leading to respiratory failure now successfully extubated with excellent overall clinical status. 2. Acute renal insufficiency with continually improving serum creatinine. 3. History of prior CABG. 4. History of hypertension and diabetes. Continue current supportive care. Consultation Date/Type/Reason Admit Date/Time Dec 11, 2016 at 07:11 Initial Consult Date 12/12/16 Type of Consultation: Pulmonary Referring Provider: THA BALES MD 24 HR Interval Summary Free Text/Dictation Patient condition able. Has been dropped out of ICU to the midfoot. Remains completely awake and alert. Denies any shortness of breath, chest pain. General exam; elderly male, awake and alert. Currently sitting in bed. Exam/Review of Systems Vital Signs Vitals Vital Signs Date Time Temp Pulse Resp B/P Pulse Ox O2 Delivery O2 Flow Rate FiO2 12/14/16 08:38 64 12/14/16 08:04 98.0 18 146/65 94 12/14/16 08:00 Nasal Cannula 2.0 12/13/16 19:47 21 Intake and Output 12/13/16 12/13/16 12/14/16 15:00 23:00 07:00 Intake Total 120 ml Output Total 630 ml 275 ml Balance -510 ml -275 ml Exam HEENT exam; supple neck, positive JVD. No lymphadenopathy. Midline trachea. No thyromegaly. Pharynx is clear. Patient has dentures. Has bilateral intraocular lens implants. Chest exam; clear to auscultation. There is a well-healed sternal scar. S1-S2 audible, no murmurs. Regular rhythm. Abdomen exam; soft, nontender. No organomegaly. Bowel sounds audible. Extremity exam; no peripheral edema. Pulses 1+ bilaterally. [employer] exam; no focal deficit. Results Result Diagram: 12/14/16 0650 12/14/16 0650 Results 24 hrs Laboratory Tests Test 12/13/16 13:32 12/13/16 17:25 12/13/16 21:03 12/13/16 22:51 Bedside Glucose 141 122 257 H 223 H Test 12/14/16 04:51 12/14/16 06:50 12/14/16 08:40 Bedside Glucose 181 161 White Blood Count 8.3 Red Blood Count 4.73 Hemoglobin 14.2 Hematocrit 43.0 Mean Corpuscular Volume 90.9 Mean Corpuscular Hemoglobin 30.0 Mean Corpuscular Hemoglobin Concent 33.0 Red Cell Distribution Width 12.5 Platelet Count 159 # Mean Platelet Volume 10.2 Neutrophils % 78.5 H Lymphocytes % 11.5 L Monocytes % 8.0 Eosinophils % 1.3 Basophils % 0.2 Nucleated Red Blood Cells % 0.0 Neutrophils # (Manual) 6.5 Lymphocytes # 1.0 Monocytes # 0.7 Eosinophils # 0.1 Basophils # 0.0 Nucleated Red Blood Cells # 0.0 Sodium Level 145 H Potassium Level 3.7 Chloride Level 99 Carbon Dioxide Level 30 Anion Gap 20 H Blood Urea Nitrogen 32 H Creatinine 1.58 H Glucose Level 172 Calcium Level 9.1 Medications Medications Current Medications Ranolazine (Ranexa) 1,000 mg Q12 PO Last administered on 12/14/16 09:25; Admin Dose 1,000 MG; Start 12/11/16 at 21:00 Diagnostic Test (Pha) (Accu-Chek) 1 ea 02 XX Last administered on 12/14/16 02: 00; Admin Dose 1 EA; Start 12/12/16 at 02:00 Insulin Glargine (Lantus) 14 unit DAILY@08 SC Last administered on 12/14/16 09 :59; Admin Dose 14 UNIT; Start 12/12/16 at 08:00 Hydralazine HCl (Apresoline) 5 mg Q4H PRN IV ELEVATED BLOOD PRESSURE; Start at 15:30 Metoprolol Tartrate (Lopressor) 50 mg BID PO Last administered on 12/14/16 09: 25; Admin Dose 50 MG; Start 12/12/16 at 21:00 Losartan Potassium (Cozaar) 100 mg DAILY PO Last administered on 12/14/16 09: 26; Admin Dose 100 MG; Start 12/13/16 at 09:00 Aspirin (Aspirin) 81 mg DAILY PO Last administered on 12/14/16 09:21; Admin Dose 81 MG; Start 12/12/16 at 09:30 Atorvastatin Calcium (Lipitor) 40 mg HS PO Last administered on 12/13/16 20:59 ; Admin Dose 40 MG; Start 12/12/16 at 21:00 Furosemide (Lasix) 20 mg DAILY@06 PO Last administered on 12/14/16t 06:39; Admin Dose 20 MG; Start 12/14/16 at 06:00 Miscellaneous Information 1 ea NOTE XX ; Start 12/13/16 at 20:30 Glucose (Glutose) 15 gm Q15M PRN PO DECREASED GLUCOSE; Start 12/13/16 at 20:30 Glucose (Glutose) 22.5 gm Q15M PRN PO DECREASED GLUCOSE; Start 12/13/16 at 20: 30 Dextrose (D50w Syringe) 25 ml Q15M PRN IV DECREASED GLUCOSE; Start 12/13/16 at 20:30 Dextrose (D50w Syringe) 50 ml Q15M PRN IV DECREASED GLUCOSE; Start 12/13/16 at 20:30 Glucagon (Glucagen) 1 mg Q15M PRN IM DECREASED GLUCOSE; Start 12/13/16 at 20:30 Glucose (Glutose) 15 gm Q15M PRN BUCCAL DECREASED GLUCOSE; Start 12/13/16 at 20 :30 SERAFIN GRAVES Dec 14, 2016 11:32
[2016-12-14] MEDS ORDERED: METF500T PO (11:42)
[2016-12-14] MEDS ORDERED: METO-429 PO (11:42)
[2016-12-14] MEDS ORDERED: LAS20 PO (11:42)
--- NOTE | 2016-12-14 11:43 | PDOCDIS ---
Discharge Instructions CONDITION Patient Condition: Good HOME CARE INSTRUCTIONS: Special Diet: Decreased Carbs ACTIVITY: Activity Restrictions: No Restrictions FOLLOW UP/APPOINTMENTS Follow-up Plan F/U WITH YOUR PCP IN 1-2 WEEKS FRANSISCO STRONG Dec 14, 2016 11:43
--- NOTE | 2016-12-14 15:31 | DS ---
Date/Time of Note Date/Time of Note DATE: 12/14/16 TIME: 15:22 Discharge Summary Admission/Discharge Info Admit Date/Time Dec 11, 2016 at 07:11 Discharge Date/Time Dec 14, 2016 at 14:44 Discharge Diagnosis Acute respiratory failure secondary to pulmonary edema status post vent support and diuresis Acute on chronic systolic heart failure: EF ~45%, episodes seems to be a flash pulmonary edema episode of unclear etiology~now euvolemic -DC with Lasix 20 daily CAD s/p CABG-no acute issues paroxysmal afib-continue Xarelto SSS s/p PPM CKD: Stable HTN-stable, increase metoprolol to twice daily Hyperglycemia-DC with metformin Patient Condition: Good Hospital Course Patient is a 61 yo male with h/o CAD s/p CABG, PPM, DMII, obesity who presented with 1 day of SOB. Found to be in respiratory failure and intubated acutely in the ED. seen by cardiology and found to have an EF of 45%. Patient thought to have flash pulmonary edema, patient was diuresed and ultimately extubated and was noted to be euvolemic and stable for DC. The day of discharge patient's vitals, labs and physical exam are stable, he had no acute complaints and questions are answered. Of note patient was noted to be hyperglycemic and considering cardiac history patient was discharged with metformin, patient's metoprolol was also changed to twice daily and was given Lasix 20 daily. Home Meds Active Scripts Metformin Hcl (Glucophage) 500 Mg Tablet, 500 MG PO WITH BREAKFAST DINNE, #60 TAB Prov:FRANSISCO STRONG 12/14/16 Furosemide (Lasix) 20 Mg Tab, 20 MG PO DAILY, #60 TAB 1 Refill Prov:FRANSISCO STRONG 12/14/16 Metoprolol Tartrate* (Lopressor*) 50 Mg Tab, 50 MG PO BID, #60 TAB 1 Refill Prov:FRANSISCO STRONG 12/14/16 Reported Medications Ergocalciferol (Vitamin D2) (VITAMIN D2) 50,000 Unit Capsule, 44879 UNIT PO QTUESDAY, CAP 12/11/16 Zolpidem Tartrate* (Zolpidem Tartrate*) 10 Mg Tablet, 10 MG PO QHS Y for INSOMNIA, #30 TAB 12/11/16 Rivaroxaban* (Xarelto*) 15 Mg Tablet, 15 MG PO DAILY, TAB 12/11/16 Isosorbide Mononitrate* (Isosorbide Mononitrate*) 60 Mg Tab.er.24h, 60 MG PO DAILY, TAB 12/11/16 Losartan-Hydrochlorothiazide (Losartan-HCTZ) 100-12.5 Mg Tab, 1 TAB PO QAM, TAB 12/11/16 Ranolazine* (Ranexa*) 1,000 Mg Tab.sr.12h, 1000 MG PO Q12, TAB 12/11/16 Discontinued Reported Medications Metoprolol Tartrate* (Lopressor*) 50 Mg Tab, 50 MG PO DAILY, #60 TAB 12/11/16 Follow-up Plan FOLLOW UP WITH YOUR PRIMARY CARE PHYSICIAN IN 1-2 WEEKS Primary Care Provider Gomez Cornelius Time spent on discharge: > 30 minutes FRANSISCO STRONG Dec 14, 2016 15:31
== END 2016-12-14 14:44 | disposition home or self-care (01) | DRG 208 ==
LOC: E/R 05:12 → ICU 07:11 → MS4 12-13 20:17
PROVIDERS: ADMIT Family Medicine; ATTEND Family Medicine
PROC: 5A1945Z Respiratory Ventilation, 24-96 Consecutive Hours (ICD-10-PCS; principal; 2016-12-11)
PROC: 0BH17EZ Insertion of Endotracheal Airway into Trachea, Via Natural or Artificial Opening (ICD-10-PCS; 2016-12-11)
DX: J96.01 Acute respiratory failure with hypoxia (principal); I50.23 Acute on chronic systolic (congestive) heart failure; E87.2 Acidosis; E87.0 Hyperosmolality and hypernatremia; I13.0 Hypertensive heart and chronic kidney disease with heart failure and stage 1 through stage 4 chronic kidney disease, or unspecified chronic kidney disease; I42.9 Cardiomyopathy, unspecified; J96.02 Acute respiratory failure with hypercapnia; E11.22 Type 2 diabetes mellitus with diabetic chronic kidney disease; N18.2 Chronic kidney disease, stage 2 (mild); I48.0 Paroxysmal atrial fibrillation; G47.33 Obstructive sleep apnea (adult) (pediatric); I25.10 Atherosclerotic heart disease of native coronary artery without angina pectoris; Z79.4 Long term (current) use of insulin; Z79.02 Long term (current) use of antithrombotics/antiplatelets; Z79.82 Long term (current) use of aspirin; Z95.1 Presence of aortocoronary bypass graft; Z95.0 Presence of cardiac pacemaker; Z87.891 Personal history of nicotine dependence
CPT/HCPCS: 31500; 36415; 36600; 70450; 71010; 80048; 80053; 81001; 82803; 82962; 83036; 83605; 83735; 84100; 84484; 85025; 85610; 85730; 87040; 87081; 87086; 93005; 93306; 94002; 94003; 94640; 94770; 96374; 96375; J0692; J1170; J1815; J1940; J3010; J3370; J3475; J7030; J7060; J7070